=== PATIENT | female | born 1985 | race African-American/Black ===

== ENCOUNTER 2018-05-11 16:15 | Observation (INO) | payer MEDICAID ==
[~2018-05-11] VITALS: Ht 157.5 cm; Wt 49.4 kg
[2018-05-11] MEDS ORDERED: NKM (16:28)
--- NOTE | 2018-05-11 16:32 | NUR ---
ED Nurse Note: Pt came in due ot abd. cramping. Pt states she is having a large amount of bleeding with clots that started this afternoon. 3 pads saturated. Reports lightheadedness. Pt is AAO x4,ambulates with non labored breathing.
[2018-05-11] MEDS ORDERED: Acetaminophen 500mg (ES) tab ORAL ONE (16:45)
--- NOTE | 2018-05-11 16:47 | NUR ---
ED Nurse Note: Blood sent.
--- NOTE | 2018-05-11 16:48 | Emergency Room Report ---
History of Present Illness General Chief Complaint: Abdominal Pain Source: Patient (Milo Montoya) Present Illness HPI 33-year-old female patient presents the ER complaining of 1 day of abdominal cramping and vaginal bleeding. Reports passage of clots during this time. Denies breast tissue. Denies dysuria, hematuria. Denies diarrhea. Reports single episode of vomiting earlier today. Denies hematemesis. Denies blood in stool. Reports able to pass flatus. Denies fever, chest pain, shortness of breath. Denies flank pain. Denies foul-smelling odor or vaginal discharge. Denies pelvic lesions or rash. Reports last menstrual period was in February and was irregular. States that she stopped taking her control medicine prior to her last menstrual period in February. Denies other aggravating or relieving factors. Denies hx of similar symptoms in the past. (Milo Montoya) Allergies: Coded Allergies: No Known Allergies (Unverified , 05/11/18) Patient History Past Medical History: see triage record Last Menstrual Period: 03/08/18 Now: No : 4 Para: 2 Reviewed Nursing Documentation: PMH: Agreed; PSxH: Agreed (Milo Montoya) Nursing Documentation-PMH Past Medical History: No Stated History (Milo Montoya) Review of Systems All Other Systems: negative except mentioned in HPI (Mlio Montoya) Physical Exam Vital Signs Date Time Temp Pulse Resp B/P (MAP) Pulse Ox O2 Delivery O2 Flow Rate FiO2 05/11/18 16:22 98.1 115 18 86/67 99 Room Air Sp02 EP Interpretation: reviewed, normal General Appearance: well appearing, no apparent distress, alert, GCS 15, non- toxic Head: normocephalic, atraumatic Eyes: bilateral eye normal inspection, bilateral eye PERRL ENT: hearing grossly normal, normal pharynx, no angioedema, normal voice, uvula midline, moist mucus membranes Neck: full range of motion, no meningismus, no bony tend Respiratory: lungs clear, normal breath sounds, no rhonchi, no respiratory distress, no accessory muscle use, no wheezing, speaking full sentences Cardiovascular #1: regular rate, rhythm, no edema Gastrointestinal: normal bowel sounds, soft, no mass, non-distended, no guarding, no rebound, tenderness - suprapubic, other - negative obturator, negative rovsing Genitourinary: no CVA tenderness, deferred Musculoskeletal: back normal, digits/nails normal, gait/station normal, normal range of motion, non-tender Neurologic: alert, oriented x3, responsive, motor strength/tone normal, sensory intact Psychiatric: mood/affect normal Skin: no rash (Milo Montoya) Medical Decision Making PA Attestation Dr. Perez is my supervising Physician whom patient management has been discussed with. (Milo Montoya) Diagnostic Impression: Primary Impression: Vaginal bleeding before 22 weeks gestation Additional Impressions: Hypotension (arterial) Qualified Codes: I95.89 - Other hypotension Leukocytosis Qualified Codes: D72.828 - Other elevated white blood cell count ER Course Pt presents to ED c/o vaginal bleeding and passage of clots times 1 day. DDX considered but are not limited to threatened , incomplete , complete , ectopic, UTI, septic , fibroids, dysfunctional uterine bleeding, STI, ovarian torsion, anemia, tubo-ovarian abscess, sepsis, infection, dehydration. Negative Rovsing, no fever, low suspicion for appendicitis, does not require CT at this time. VITAL SIGNS patient is afebrile, hypotensive and tachycardic, possible sepsis, will provide patient with IV fluids. Will continue to monitor. Pelvic exam:deferred. Ordered CBC, CMP, Type and Screen, UA, UCG, bHCG, IV NS and pelvic US. Tylenol for pain control. ER COURSE: Provided with IV fluids and Tylenol for pain CBC and CMP elevated WBC, mild anemia noted, does not require blood transfusion at this time. UA results pending Urine positive BetaHCG elevated, no IUP, will admit patient to rule out ectopic Rh antibody negative Blood type A positive Results discussed with patient. Pelvic US shows thickened endometrium measuring 2 cm, right ovary is unremarkable in size and appearance with normal vascular flow, left ovary not visualized, no adnexal masses or pelvic free fluid. Patient reports pain symptoms improve while in the ER. Will admit patient for possible ruptured ectopic and sepsis. Ordered lactic acid, provide patient with antibiotics. Ordered blood cultures. Lactic acid elevated, ordered IV fluids Patient seen and evaluated by Dr. Perez, agrees with assessment treatment plan. Patient to be admitted. - Please note that this Emergency Department Report was dictated using [employer] physicist technology software, occasionally this can lead to erroneous entry secondary to interpretation by the dictation equipment. Labs Test 05/11/18 16:40 05/11/18 18:00 05/11/18 18:50 Red Blood Cell Morphology Normal Prothrombin Time 11.1 SEC (9.30-11.50) Prothromb Time International Ratio 1.1 (0.9-1.1) Activated Partial Thromboplast Time 24 SEC (23-33) Sodium Level 138 MMOL/L (136-145) Potassium Level 3.7 MMOL/L (3.5-5.1) Chloride Level 103 MMOL/L (98-107) Carbon Dioxide Level 24 MMOL/L (21-32) Anion Gap 11 mmol/L (5-15) Blood Urea Nitrogen 12 mg/dL (7-18) Creatinine 0.6 MG/DL (0.55-1.30) Estimat Glomerular Filtration Rate > 60 mL/min (>60) Glucose Level 121 MG/DL (74-106) Calcium Level 8.8 MG/DL (8.5-10.1) Total Bilirubin 0.5 MG/DL (0.2-1.0) Aspartate Amino Transf (AST/SGOT) 14 U/L (15-37) Alanine Aminotransferase (ALT/SGPT) 14 U/L (12-78) Alkaline Phosphatase 55 U/L (46-116) Total Protein 7.3 G/DL (6.4-8.2) Albumin 3.6 G/DL (3.4-5.0) Globulin 3.7 g/dL Albumin/Globulin Ratio 1.0 (1.0-2.7) Lipase 103 U/L (73-393) Human Chorionic Gonadotropin, Quant 5234 mIU/mL (1-6) Lactic Acid Level 2.30 mmol/L (0.4-2.0) Human Chorionic Gonadotropin, Qual Positive (NEGATIVE) White Blood Count 17.7 K/UL (4.8-10.8) Red Blood Count 3.42 M/UL (4.20-5.40) Hemoglobin 9.6 G/DL (12.0-16.0) Hematocrit 29.5 % (37.0-47.0) Mean Corpuscular Volume 86 FL (80-99) Mean Corpuscular Hemoglobin 28.0 PG (27.0-31.0) Mean Corpuscular Hemoglobin Concent 32.5 G/DL (32.0-36.0) Red Cell Distribution Width 11.8 % (11.6-14.8) Platelet Count 174 K/UL (150-450) Mean Platelet Volume 10.1 FL (6.5-10.1) Neutrophils (%) (Auto) % (45.0-75.0) Lymphocytes (%) (Auto) % (20.0-45.0) Monocytes (%) (Auto) % (1.0-10.0) Eosinophils (%) (Auto) % (0.0-3.0) Basophils (%) (Auto) % (0.0-2.0) Differential Total Cells Counted 100 Neutrophils % (Manual) 94 % (45-75) Lymphocytes % (Manual) 4 % (20-45) Monocytes % (Manual) 2 % (1-10) Eosinophils % (Manual) 0 % (0-3) Basophils % (Manual) 0 % (0-2) Band Neutrophils 0 % (0-8) Platelet Estimate Adequate Platelet Morphology Normal Polychromasia 1+ (Milo Montoya P.Katharina) ER Course Please see above note. I was directly involved with this patient's care. Initial concern was ectopic . Ultrasound did not identify a mass or fluid in the cul-de-sac. With high white count that there is a concern of possible sepsis. Blood cultures are performed and antibiotics begun. Dr. Lama and Dr. Velasquez were both contacted by me. Discussion of repeating hemoglobin and hematocrit. Patient's blood pressure and pulse improving with fluids. Hemoglobin dropped from 11-9. Dr. chávez and I discussed this. Patient has a nonsurgical abdomen at this time. Patient admitted to stepdown unit. (Ken Perez MD) EKG Diagnostic Results Rate: normal Rhythm: NSR ST Segments: no acute changes - ST inversions inferiorly (Ken Perez MD) Rhythm Strip Diag. Results Rhythm: NSR, no PVC's, no ectopy, other - ST (Ken Perez MD) Last Vital Signs Date Time Temp Pulse Resp B/P (MAP) Pulse Ox O2 Delivery O2 Flow Rate FiO2 05/11/18 16:22 98.1 115 18 86/67 99 Room Air (Milo Montoya) Status: improved (Ken Perez MD) Disposition: ADMITTED INPATIENT Condition: Serious Milo Montoya May 11, 2018 16:48 Ken Perez MD May 11, 2018 22:42
--- NOTE | 2018-05-11 16:57 | NUR ---
ED Nurse Note: Pt taken to US.
[2018-05-11 17:01] LABS: HEMATOCRIT 34.6 % (37.0-47.0); HEMOGLOBIN 11.3 G/DL (12.0-16.0); MEAN CORPUSCULAR VOLUME 86 FL (80-99); PLATELET COUNT 192 K/UL (150-450); RED BLOOD COUNT 4.02 M/UL (4.20-5.40); RED CELL DISTRIBUTION WIDTH 11.6 % (11.6-14.8); WHITE BLOOD COUNT 18.6 K/UL (4.8-10.8)
[2018-05-11 17:08] LABS: INR 1.1 (0.9-1.1)
[2018-05-11 17:16] LABS: ANION GAP 11 mmol/L (5-15); BLOOD UREA NITROGEN 12 mg/dL (7-18); CALCIUM 8.8 MG/DL (8.5-10.1); CARBON DIOXIDE 24 MMOL/L (21-32); CHLORIDE 103 MMOL/L (98-107); CREATININE 0.6 MG/DL (0.55-1.30); POTASSIUM 3.7 MMOL/L (3.5-5.1); SODIUM 138 MMOL/L (136-145)
[2018-05-11 17:21] LABS: ALANINE AMINOTRANSFERASE 14 U/L (12-78); ALBUMIN 3.6 G/DL (3.4-5.0); ALKALINE PHOSPHATASE 55 U/L (46-116); ASPARTATE AMINO TRANSFERASE 14 U/L (15-37); BILIRUBIN,TOTAL 0.5 MG/DL (0.2-1.0)
--- NOTE | 2018-05-11 17:50 | NUR ---
ED Nurse Note: Pt back from US. Pt still feels lightheaded.
--- NOTE | 2018-05-11 18:04 | NUR ---
ED Nurse Note: Pt reported that she can Addendum: 05/11/18 at 1805 by [email or web address] ED Nurse Note: Pt reported that she cannot urinate at this moment and does not want to catheralization. pt is aao x4. reported to and said it is ok to wait without catheralization.
--- NOTE | 2018-05-11 18:05 | NUR ---
HAND-OFF: Report given to Steven Plata RN.
[2018-05-11 18:10] VITALS: BP 107/77
--- NOTE | 2018-05-11 18:12 | NUR ---
ED Nurse Note: Received pt to Bed 5 in stable condition. VSS, pt aao x4 and calm. pt denied pain at this moment. skin clean and intact.
--- NOTE | 2018-05-11 18:43 | NUR ---
ED Nurse Note: Pt requested to speak to the doctor. made aware.
--- NOTE | 2018-05-11 18:48 | NUR ---
ED Nurse Note: Dr. Perez, and DALE Bacon are in pt's room and speaking with pt and family.
[2018-05-11 18:58] LABS: HEMATOCRIT 29.5 % (37.0-47.0); HEMOGLOBIN 9.6 G/DL (12.0-16.0); MEAN CORPUSCULAR VOLUME 86 FL (80-99); PLATELET COUNT 174 K/UL (150-450); RED BLOOD COUNT 3.42 M/UL (4.20-5.40); RED CELL DISTRIBUTION WIDTH 11.8 % (11.6-14.8); WHITE BLOOD COUNT 17.7 K/UL (4.8-10.8)
[2018-05-11] MEDS ORDERED: Cefepime HCl 1 GM in D5W 55 ML IVPB ONE (19:00)
[2018-05-11 19:30] VITALS: BP 99/57
--- NOTE | 2018-05-11 19:35 | NUR ---
HAND-OFF: Report given to ELEONORA Nunn. She will follow up with urine sample.
--- NOTE | 2018-05-11 19:40 | NUR ---
ED Nurse Note: Patient exhibited anxiety, encouraged to relax, second bag of antibiotics hung and new bag of normal saline ran at 300ml. Patient vital signs are stable patient still a bit tachycardic. Blood pressure responding well to fluids.
[2018-05-11 20:08] VITALS: BP 103/75
--- NOTE | 2018-05-11 20:40 | NUR ---
ED Nurse Note: Patient expresses no pain or discomfort. boyfriend and sister at bedside.
--- NOTE | 2018-05-11 21:00 | NUR ---
ED Nurse Note: Patient expresses hunger, ERMD ok'd food. Patient tolerated food well, no s/s of acute distress. Patient able to give urine specimen.
[2018-05-11 21:43] LABS: APPEARANCE,URINE SLIGHTLY CLOUDY; BILIRUBIN, URINE NEGATIVE (NEGATIVE); COLOR,URINE PALE YELLOW; GLUCOSE, URINE (UA) NEGATIVE (NEGATIVE); KETONES,URINE 4+ (NEGATIVE); LEUKOCYTE ESTERASE ,URINE NEGATIVE (NEGATIVE); NITRITE,URINE NEGATIVE (NEGATIVE); PH,URINE 5 (4.5-8.0); PROTEIN,URINE 1+ (NEGATIVE); UROBILINOGEN,URINE NORMAL MG/DL (0.0-1.0)
--- NOTE | 2018-05-11 21:55 | NUR ---
ED Nurse Note: Patient notes intermittent episodes of cramping and decrease bleeding. Patient was able to ambulate with steady gait.
--- NOTE | 2018-05-11 22:50 | NUR ---
ED Nurse Note: Patient cleared for transport to tele floor, Report given to Nain CREWS prior to transport by Yuri CREWS and Lizet demarco. Patient vital signs were stable and patient expressed no complaints at time of departure. color television console monitor transferred along with patient.
--- NOTE | 2018-05-11 23:30 | NUR ---
NURSE NOTES: Got report from Wendi CREWS from the ER. Pt in stable condition. Denies any pain. No s/s of distress or discomfort noted. Pt resting in bed comfortably. Initial assessment done. Pt fully oriented and ambulatory. VSS. Bed in low and locked position, call light within reach, bedside table wtihin reach. Continue to monitor. Called Dr. Velasquez for orders. Orders given and placed.
[2018-05-12] VITALS: BP 102/71
[2018-05-12 04:55] VITALS: BP 118/75
[2018-05-12] MEDS ORDERED: Acetaminophen 500mg (ES) tab ORAL PRN (06:00)
[2018-05-12 07:17] LABS: HEMOGLOBIN 7.2 G/DL (12.0-16.0); MEAN CORPUSCULAR VOLUME 86 FL (80-99); PLATELET COUNT 138 K/UL (150-450); RED BLOOD COUNT 2.57 M/UL (4.20-5.40); RED CELL DISTRIBUTION WIDTH 11.9 % (11.6-14.8); WHITE BLOOD COUNT 9.5 K/UL (4.8-10.8)
--- NOTE | 2018-05-12 07:40 | NUR ---
HAND-OFF: Report given to Stephy CREWS. Endorsed plan of care.
[2018-05-12 08:00] VITALS: BP 99/66
[2018-05-12] MEDS ORDERED: Iron Sucrose 100 MG in NS 55 ML IVPB ONE (10:30)
[2018-05-12] MEDS ORDERED: Iron Sucrose 100 MG in NS 55 ML IV ONE ×4 (11:30)
[2018-05-12 12:00] VITALS: BP 98/68
[2018-05-12 12:10] LABS: HEMATOCRIT 22.3 % (37.0-47.0); HEMOGLOBIN 7.4 G/DL (12.0-16.0); MEAN CORPUSCULAR VOLUME 85 FL (80-99); PLATELET COUNT 131 K/UL (150-450); RED BLOOD COUNT 2.61 M/UL (4.20-5.40); WHITE BLOOD COUNT 8.1 K/UL (4.8-10.8)
[2018-05-12] MEDS: Cefepime HCl 1 GM in D5W 55 ML IVPB SCH ×2 (13:15→21:00)
--- NOTE | 2018-05-12 13:49 | Consultation ---
History of Present Illness General Date patient seen: May 12, 2018 Reason for Hospitalization: Abdominal Pain Present Illness HPI 33 year old female presented to ED with abdominal pain and vaginal bleeding. concerns for ruptured ectopic. admitted for monitoring and care. On admission noted to have abnormal wound to right anterior midshaft tibia. Surgery called to evaluate. patient seen, chart reviewed, patient examined. states that 2 years ago had a "pimple" which never healed. had enlarged and continues to not heal. was suppose to have surgical evaluation prior but never got referral from insurance. no pain. no symptoms. keeps dressing over wound Allergies: Coded Allergies: No Known Allergies (Unverified , 05/11/18) Medication History Scheduled No Known Medications* (NKM - No Known Medications*), 0 ., (Reported) Patient History History Provided By: Patient, Medical Record, PMD Healthcare decision maker Resuscitation status Advanced Directive on File Past Medical/Surgical History Past Medical/Surgical History: (1) Leukocytosis (2) Hypotension (arterial) (3) Vaginal bleeding before 22 weeks gestation Review of Systems Review of Symptoms General ROS: no weight loss or fever Psychological ROS: no depression or mood changes, no memory loss Ophthalmic ROS: no visual changes or eye irritation ENT ROS: no nasal congestion, hearing loss, dizziness Allergy and Immunology ROS: no allergic symptoms or urticaria Hematological and Lymphatic ROS: no swollen glands, unusual bleeding or bruising Endocrine ROS: no polyuria, polydipsia, weight changes, temperature intolerance Respiratory ROS: no cough, shortness of breath, or wheezing Cardiovascular ROS: no chest pain or dyspnea on exertion Gastrointestinal ROS: denies abdominal pain, bright red blood in stool. Musculoskeletal ROS: no myalgias or arthralgias Neurological ROS: no TIA or stroke symptoms Dermatological ROS: no new or changing skin lesions, rashes or pruritis Physical Exam Physical Exam General appearance: alert, cooperative, no distress, appears stated age Head: Normocephalic, without obvious abnormality, atraumatic Eyes: conjunctivae/corneas clear. PERRL, EOM's intact. Fundi benign Throat: Lips, mucosa, and tongue normal. Teeth and gums normal Neck: supple, symmetrical, trachea midline, no adenopathy, thyroid: not enlarged, symmetric, no tenderness/mass/nodules, no carotid bruit and no JVD Lungs: clear to auscultation bilaterally Heart: regular rate and rhythm, S1, S2 normal, no murmur, click, rub or gallop Abdomen: soft, non-tender. Bowel sounds normal. No masses, no organomegaly Extremities: extremities normal, atraumatic, no cyanosis or edema Pulses: 2+ and symmetric Skin: Skin color, texture, turgor normal. No rashes or lesions. 3cm x 2cm x 1cm raised ulceration to right midshaft anterior leg. mobile skin lesion. no drainage. open wound Neurologic: Grossly normal Last 24 Hour Vital Signs Date Time Temp Pulse Resp B/P (MAP) Pulse Ox O2 Delivery O2 Flow Rate FiO2 05/12/18 09:00 Room Air 05/12/18 08:27 98.3 05/12/18 08:00 98.3 86 19 99/66 (77) 100 05/12/18 04:55 98.0 105 20 118/75 (89) 99 05/12/18 04:00 93 05/12/18 01:59 Room Air 05/12/18 00:00 116 05/12/18 00:00 97.7 100 20 102/71 (81) 98 05/11/18 22:50 97.5 97 23 103/75 100 Room Air 05/11/18 20:08 97.5 97 23 103/75 100 Room Air 05/11/18 19:30 98.2 104 32 99/57 100 Room Air 05/11/18 18:10 98.2 104 18 107/77 100 Room Air 05/11/18 18:10 104 16 Room Air 05/11/18 16:32 115 18 Room Air 05/11/18 16:22 98.1 115 18 86/67 99 Room Air Intake and Output 05/11/18 05/12/18 19:00 07:00 Intake Total 1000 ml 300 ml Balance 1000 ml 300 ml Intake Oral 0 ml IV Total 1000 ml 300 ml # Voids 1 4 Laboratory Tests Test 05/11/18 16:40 05/11/18 18:00 05/11/18 18:50 05/11/18 21:33 White Blood Count 18.6 K/UL (4.8-10.8) H 17.7 K/UL (4.8-10.8) H Red Blood Count 4.02 M/UL (4.20-5.40) L 3.42 M/UL (4.20-5.40) L Hemoglobin 11.3 G/DL (12.0-16.0) L 9.6 G/DL (12.0-16.0) L Hematocrit 34.6 % (37.0-47.0) L 29.5 % (37.0-47.0) L Mean Corpuscular Volume 86 FL (80-99) 86 FL (80-99) Mean Corpuscular Hemoglobin 28.1 PG (27.0-31.0) 28.0 PG (27.0-31.0) Mean Corpuscular Hemoglobin Concent 32.6 G/DL (32.0-36.0) 32.5 G/DL (32.0-36.0) Red Cell Distribution Width 11.6 % (11.6-14.8) 11.8 % (11.6-14.8) Platelet Count 192 K/UL (150-450) 174 K/UL (150-450) Mean Platelet Volume 9.5 FL (6.5-10.1) 10.1 FL (6.5-10.1) Neutrophils (%) (Auto) % (45.0-75.0) % (45.0-75.0) Lymphocytes (%) (Auto) % (20.0-45.0) % (20.0-45.0) Monocytes (%) (Auto) % (1.0-10.0) % (1.0-10.0) Eosinophils (%) (Auto) % (0.0-3.0) % (0.0-3.0) Basophils (%) (Auto) % (0.0-2.0) % (0.0-2.0) Differential Total Cells Counted 100 100 Neutrophils % (Manual) 91 % (45-75) H 94 % (45-75) H Lymphocytes % (Manual) 8 % (20-45) L 4 % (20-45) L Monocytes % (Manual) 0 % (1-10) L 2 % (1-10) Eosinophils % (Manual) 0 % (0-3) 0 % (0-3) Basophils % (Manual) 0 % (0-2) 0 % (0-2) Band Neutrophils 1 % (0-8) 0 % (0-8) Platelet Estimate Adequate Adequate Platelet Morphology Normal Normal Red Blood Cell Morphology Normal Prothrombin Time 11.1 SEC (9.30-11.50) Prothromb Time International Ratio 1.1 (0.9-1.1) Activated Partial Thromboplast Time 24 SEC (23-33) Sodium Level 138 MMOL/L (136-145) Potassium Level 3.7 MMOL/L (3.5-5.1) Chloride Level 103 MMOL/L (98-107) Carbon Dioxide Level 24 MMOL/L (21-32) Anion Gap 11 mmol/L (5-15) Blood Urea Nitrogen 12 mg/dL (7-18) Creatinine 0.6 MG/DL (0.55-1.30) Estimat Glomerular Filtration Rate > 60 mL/min (>60) Glucose Level 121 MG/DL (74-106) H Calcium Level 8.8 MG/DL (8.5-10.1) Total Bilirubin 0.5 MG/DL (0.2-1.0) Aspartate Amino Transf (AST/SGOT) 14 U/L (15-37) L Alanine Aminotransferase (ALT/SGPT) 14 U/L (12-78) Alkaline Phosphatase 55 U/L (46-116) Total Protein 7.3 G/DL (6.4-8.2) Albumin 3.6 G/DL (3.4-5.0) Globulin 3.7 g/dL Albumin/Globulin Ratio 1.0 (1.0-2.7) Lipase 103 U/L (73-393) Human Chorionic Gonadotropin, Quant 5234 mIU/mL (1-6) H Lactic Acid Level 2.30 mmol/L (0.4-2.0) H Human Chorionic Gonadotropin, Qual Positive (NEGATIVE) Polychromasia 1+ Urine Color Pale yellow Urine Appearance Slightly cloudy Urine pH 5 (4.5-8.0) Urine Specific [place] 1.025 (1.005-1.035) Urine Protein 1+ (NEGATIVE) H Urine Glucose (UA) Negative (NEGATIVE) Urine Ketones 4+ (NEGATIVE) H Urine Blood 5+ (NEGATIVE) H Urine Nitrite Negative (NEGATIVE) Urine Bilirubin Negative (NEGATIVE) Urine Urobilinogen Normal MG/DL (0.0-1.0) Urine Leukocyte Esterase Negative (NEGATIVE) Urine RBC Tntc /HPF (0 - 2) H Urine WBC 0-2 /HPF (0 - 2) Urine Squamous Epithelial Cells Few /LPF (NONE/OCC) Urine Bacteria Few /HPF (NONE) Urine Mucus Moderate /LPF (NONE/OCC) H Urine HCG, Qualitative Positive (NEGATIVE) Test 05/11/18 22:27 05/12/18 06:00 05/12/18 12:00 Lactic Acid Level 1.50 mmol/L (0.66-2.22) White Blood Count 9.5 K/UL (4.8-10.8) 8.1 K/UL (4.8-10.8) Red Blood Count 2.57 M/UL (4.20-5.40) L 2.61 M/UL (4.20-5.40) L Hemoglobin 7.2 G/DL (12.0-16.0) L 7.4 G/DL (12.0-16.0) L Hematocrit 22.0 % (37.0-47.0) L 22.3 % (37.0-47.0) L Mean Corpuscular Volume 86 FL (80-99) 85 FL (80-99) Mean Corpuscular Hemoglobin 28.2 PG (27.0-31.0) 28.3 PG (27.0-31.0) Mean Corpuscular Hemoglobin Concent 32.9 G/DL (32.0-36.0) 33.1 G/DL (32.0-36.0) Red Cell Distribution Width 11.9 % (11.6-14.8) 12.0 % (11.6-14.8) Platelet Count 138 K/UL (150-450) L 131 K/UL (150-450) L Mean Platelet Volume 10.4 FL (6.5-10.1) H 9.0 FL (6.5-10.1) Neutrophils (%) (Auto) % (45.0-75.0) % (45.0-75.0) Lymphocytes (%) (Auto) % (20.0-45.0) % (20.0-45.0) Monocytes (%) (Auto) % (1.0-10.0) % (1.0-10.0) Eosinophils (%) (Auto) % (0.0-3.0) % (0.0-3.0) Basophils (%) (Auto) % (0.0-2.0) % (0.0-2.0) Differential Total Cells Counted 100 100 Neutrophils % (Manual) 73 % (45-75) 73 % (45-75) Lymphocytes % (Manual) 18 % (20-45) L 23 % (20-45) Monocytes % (Manual) 8 % (1-10) 3 % (1-10) Eosinophils % (Manual) 0 % (0-3) 0 % (0-3) Basophils % (Manual) 1 % (0-2) 1 % (0-2) Band Neutrophils 0 % (0-8) 0 % (0-8) Platelet Estimate Decreased L Decreased L Platelet Morphology Normal Normal Hypochromasia 1+ 1+ Human Chorionic Gonadotropin, Quant 2446 mIU/mL (1-6) H Height (Feet): 5 Height (Inches): 2.00 Weight (Pounds): 109 Medications Current Medications Medications (Trade) Dose Ordered Sig/John Route PRN Reason Start Time Stop Time Status Last Admin Dose Admin Acetaminophen (Tylenol) 500 mg Q6HR PRN ORAL Mild Pain/Temp > 100.5 05/12/18 06:00 06/11/18 05:59 05/12/18 07:57 Acetaminophen/ Hydrocodone Bitart ([place] 5/325) 1 tab Q4H PRN ORAL Moderate Pain (Pain Scale 4-6) 05/11/18 23:45 05/18/18 23:44 Cefepime HCl 1 gm/ Dextrose 55 ml @ 110 mls/hr EVERY 12 HOURS IVPB 05/12/18 11:45 05/19/18 11:44 05/12/18 13:15 Assessment/Plan Problem List: (1) Chronic ulcer of right leg, limited to breakdown of skin Assessment & Plan: chronic right leg skin ulceration that has developed after non healing wound 2 years ago. needs skin biopsy which can be done as outpatient would recommend excision. given location will need skin grafting or flap. patient instructed to discuss with pcp as outpatient and obtain surgical referral keep covered for now hydrogel and foam dressing daily. thank you ICD Codes: L97.911 - Non-pressure chronic ulcer of unspecified part of right lower leg limited to breakdown of skin SNOMED: [id number], [id number] Feng Casas May 12, 2018 13:49
[2018-05-12 16:00] VITALS: BP 91/60
[2018-05-12] MEDS: HYDROcodone/Acetamin 5/325 tab ORAL PRN ×2 (16:28→20:54)
--- NOTE | 2018-05-12 16:36 | NUR ---
CASE MANAGEMENT: REVIEW 33/F PRESENTED TO ED FROM HOME CC: ABD PAIN SI: RUPTURED ECTOPIC . VAGINAL BLEEDING BEFORE 22 WEEKS GESTATION . CHRONIC ULCER OF RIGHT LEG T 98.3 HR 115 RR 18 BP 86/67 SAT 99% ROOM AIR WBC 18.6 H/H 11.3/34.6 IS: NS IVF BOLUS X1 CEFEPIME IV X1 VENOFER IV X1 PATIENT ADMITTED TO TELEMETRY UNIT 05/11/2018 DCP: PATIENT IS FROM HOME
--- NOTE | 2018-05-12 17:57 | Diagnostic Imaging Report ---
EXAM: US Pelvis Complete, Transabdominal US Pelvis, Transvaginal CLINICAL HISTORY: ECTOPIC PG TECHNIQUE: Real-time transabdominal and transvaginal pelvic ultrasound (complete) with image documentation. Transvaginal imaging was used for better evaluation of the endometrium and adnexa. COMPARISON: 05/11/2018 FINDINGS: Uterus/cervix: Uterus measures 9.7 x 4.7 x 5 cm. Prominent heterogeneous endometrium measuring 1.5 cm some internal vascular flow. Right ovary: Unremarkable in size and appearance, measuring 3.7 x 1.9 x 1.5 cm. 3 mm right ovarian calcification. No adnexal mass. Normal blood flow. Left ovary: Unremarkable in size and appearance, measuring 2.2 x 2.7 x 2.5 cm. No adnexal mass. Normal blood flow. Free fluid: Trace nonspecific pelvic free fluid. Bladder: Unremarkable as visualized. IMPRESSION: Prominent heterogeneous endometrium measuring 1.5 cm some internal vascular flow, possibly retained products of conception.
--- NOTE | 2018-05-12 19:38 | NUR ---
HAND-OFF: Report given to JULIA CREWS.
--- NOTE | 2018-05-12 19:51 | NUR ---
NURSE NOTES: Received pt from ELEONORA Keyes. Pt awake, alert, and talkative. Bed in lowest position. Call light within reach. Called and left a message with Dr. Velasquez and Dr. Lama regarding pts request to be discharged. Dr. Velasquez called back with orders to DC after hearing results of US. Will put in order and will continue to monitor.
[2018-05-12 20:00] VITALS: BP 99/60
--- NOTE | 2018-05-12 21:03 | NUR ---
NURSE NOTES: Received orders to continue D/C even though hgb low and BP low. Pt feel fine. Will remove ivf embryologist, IV site, and perform DC teaching. Will continue to monitor.
--- NOTE | 2018-05-12 21:20 | NUR ---
NURSE NOTES: Dr. Velasquez prescribed Ibuprofen pen up to 600 mg for her cramps. Will input order.
[2018-05-12] MEDS ORDERED: IBUPROFEN600 MG ORAL (21:22)
--- NOTE | 2018-05-13 04:30 | History and Physical Report ---
DATE OF ADMISSION: 05/11/2018 [facility] HISTORY AND PHYSICAL HISTORY OF PRESENT ILLNESS: The patient is a 33-year-old, , 1, SAB 1, who presented to the emergency room yesterday after a bout of heavy vaginal bleeding for a few hours. The patient received Depo-Provera shot sometime in December, after which she had irregular bleeding. She was not aware that she was . She has been regularly sexually active, so the date of conception is unknown. When she presented to the emergency room, she was bleeding heavily and on exam, her test was positive, by which she was surprised. Her beta hCG was 5234. Her hemoglobin was 11.3 and white count was 18. The patient was resuscitated with fluids. She received antibiotics and was admitted to the hospital for observation. On ultrasound, a thickened endometrial echo complex was observed. There were no masses. The patient was admitted to the hospital for serial hemoglobins. This morning, her hemoglobin equilibrated to 7.2. However, the patient denies symptoms except for headache, which was relieved by Tylenol. She is able to ambulate and has normal vital signs. The patient was counseled regarding options including oral iron, transfusion, and IV iron and the patient choose to have IV iron followed by oral iron at home. She would like to avoid transfusion. PAST MEDICAL HISTORY: None. PHYSICAL EXAMINATION: HEAD AND NECK: Pupils are equal and reactive to light. LUNGS: Per emergency room. CARDIAC: Per emergency room. ABDOMEN: Soft and nondistended abdomen. No rebound or guarding. EXTREMITIES: No cords. No cyanosis. No edema. The patient is in bed. PELVIC: Bimanual exam deferred and speculum exam deferred. DIAGNOSTIC AND LABORATORY DATA: Ultrasound reported by the ER physician to have thickened endometrial echo complex and no adnexal masses. Current CBC is significant for white count of 9, hemoglobin of 7.2, and platelets of 138. ASSESSMENT: A 33-year-old, with probable completed spontaneous . PLAN: Repeat ultrasound. Repeat CBC. Observe for signs of symptomatic anemia prior to discharge home. Cally Velasquez M.D. DR: CHRIS JOB#: [id number] CC:
--- NOTE | 2018-05-13 14:21 | NUR ---
CASE MANAGEMENT: CM review and clinical information (face sheet/ DC instructions/ H&P/ ER MD Notes) faxed to JAY FRASER @ [phone]
--- NOTE | 2018-05-14 08:39 | Discharge Summary ---
Discharge Summary Hospital Course Date of Admission May 11, 2018 at 22:02 Date of Discharge May 12, 2018 at 22:00 Admitting Diagnosis VAGINAL BLEEDING BEFORE 22 WEEKS OF GESTATION ANEMIA LEUKOCYTOSIS HYPOTENSION Reason for Hospitalization: HEAVY VAGINAL BLEEDING HPI 33 y/old female presented to the emergency room after a bout of heavy vaginal bleeding for few hours. The patient received Depo-Provera shot sometime in December, after which she had irregular bleeding. She was not aware that she was . She has been regularly sexually active, so the date of conception was unknown. When she presented to the emergency room, she was bleeding heavily . Vital signs reveal no fever, tachycardia 115 low blood pressure 86/67. test was positive (by which she was surprised). Beta hCG 5234. Hemoglobin 11.3 . WBC -18 . Lactic acid 2.3. The patient was resuscitated with IV fluids. She received empiric antibiotics . Pelvic transvaginal ultrasound revealed prominent heterogeneous endometrium measuring 1.5 cm , some internal vascular flow, possibly retained products of conception. Patient was anemic. Initial hemoglobin 11.3 , hematocrit 34.6 and few hours later hemoglobin dropped down to 9.6 , hematocrit 29.5. Patient was admitted for trending of serial hemoglobin and possible intervention as needed. Consultations Dr Tovar -general surgeon Hospital Course Patient admitted to telemetry floor. Patient was continued on the IV hydration and empiric antibiotics. At the time of this dictation, blood culture results back and negative Leukocytosis resolved next day , likely was reactive ; patient remained afebrile. Lactic acid down to normal. Hemoglobin and hematocrit were closely monitored with goal to keep hemoglobin above 7. In the morning of 05/12 hemoglobin 7.2. Patient decided not to have transfusion. Patient subsequently had IV Venofer for 1 dose while in the hospital. Hemoglobin up to 7.4, Severe bleeding stopped. Surgery consult was requested. Patient apparently had a chronic ulcer of right lower leg . Wound care provided as per general surgeon, who in addition recommended excision of the ulcer and skin grafting or flap, given the location of the ulcer. Patient was instructed to follow-up with a primary care provider as outpatient and obtain surgical referral. Patient clinically stabilized. Blood pressure improved to baseline. Hemodynamically stable. Heavy bleeding stopped. Hemoglobin and hematocrit stabilized. Prescription for oral iron provided. Patient was instructed on diet rich in iron. Leukocytosis resolved. Patient remained afebrile . Patient ambulated in the hallway. Patient voided freely and tolerated diet. Patient was stable for discharge home. Outpatient follow up with [facility] next week. Return to ED precautions discussed in detail. FINAL DIAGNOSES Probably completed spontaneous Anemia of acute blood loss Leukocytosis - resolved Chronic ulcer right lower leg Hypotension Discharge Medications Continued Medications: Ibuprofen* (Motrin*) 600 Mg Tablet 600 MG ORAL Q6H PRN for For Pain, #30 TAB (This prescription has been renewed) Discharge Condition Upon Discharge: stable Discharge Disposition Patient was discharged to Home (01) Discharge Instructions Discharge Instructions Special Instructions I have been assigned to complete a D/C Summary on this account. I was not involved in the patient management Shira Wilson NP May 14, 2018 08:39
--- NOTE | 2018-05-14 11:19 | Diagnostic Imaging Report ---
Indication:Lower abdominal and pelvic pain Technique: Grayscale and duplex Doppler imaging of the pelvis performed utilizing a transabdominal and endovaginal scan. Comparison: None Findings: There is material or blood within the endometrial canal. Endometrium is consequently dilated thickened measuring 2 cm. This includes the endometrial contents. Difficult to distinguish the endometrium for the underlying endometrial contents. Some mild bladder contents also noted within the endocervical canal. Correlate clinically. Follow-up at 6 weeks recommended. The left ovary is not seen. The right ovary is 3.5 x 2.5 x 1.7 cm and shows dopplerable blood flow. Uterus measures 9.2 x 5.8 x 4.0 cm. IMPRESSION: Blood suspected within the endometrial canal. Recommend six-week interval follow-up examination at a different phase of the menstrual cycle. Nonidentification of the left ovary.
--- NOTE | 2018-05-16 09:51 | NUR ---
*-* INSURANCE *-* ALL CLINICALS, REVIEW AND INTERQUAL FAXED TO: [employer] P:[phone] F: [phone]
--- NOTE | 2018-05-19 20:17 | Cardiology Report ---
APPROVED REPORT EKG Measurement Heart [id number] Sinus tachycardia Possible Left atrial enlargement Low voltage QRS T wave abnormality, consider inferior ischemia Abnormal ECG
== END 2018-05-12 22:00 | disposition home or self-care (01) ==
LOC: EMR 16:57 → EDBEDREQ 20:46 → INTOOBSV 22:02 → 2E 22:02
DX: O03.9 Complete or unspecified spontaneous abortion without complication (principal); I95.9 Hypotension, unspecified; D62 Acute posthemorrhagic anemia; L97.811 Non-pressure chronic ulcer of other part of right lower leg limited to breakdown of skin; D72.829 Elevated white blood cell count, unspecified; R10.9 Unspecified abdominal pain
CPT/HCPCS: 36415; 76830; 76856; 80053; 81003; 81025; 83605; 83690; 84702; 84703; 85007; 85025; 85610; 85730; 86850; 86900; 86901; 87040; 93005; 96361; 96365; 96367; 99285; G0378; J0692; J1756